=== PATIENT | female | born 1990 | race Asian ===

== ENCOUNTER 2018-02-25 01:22 | Emergency (ER) | payer OTHER ==
--- NOTE | 2018-02-25 01:41 | PDOC ---
History of Present Illness - General Chief Complaint: Allergic Reaction Stated Complaint: ALLERGIC REACTION - History of Present Illness Initial Comments: patient is a 27 year old female, with no significant pmh, who presents to the emergency department complaining of an allergic reaction after eating pasta this evening. Pt states she had a new brand of pasta this evening around 7. Three hours later, pt states she began developing a cough, facial rash, nasal congestion, as well as diffuse macular rash BL on arms and legs. Pt states her face became swollen and she developed increased trouble breathing. Pt took two benadryl with eventual resolution of symptoms. Pt with similar reaction one year ago, however this episode was much worse. No hx of any allergies. Pt with no recent medication changes. The patient denies chest pain, headache or dizziness. Denies fever, chills, nausea, vomiting, diarrhea and constipation. Denies dysuria, frequency, urgency and hematuria. Allergies: None Past surgical history: None Social History: Denies all toxic habits 02/25/18 01:40 Past History - Past Medical History Allergies/Adverse Reactions: Allergies Allergy/AdvReac Type Severity Reaction Status Date / Time No Known Allergies Allergy Verified 02/25/18 01:34 Home Medications: Ambulatory Orders NK [No Known Home Medication] 02/25/18 - Suicide/Smoking/Psychosocial Hx Smoking History: Never smoked Have you smoked in the past 12 months: No Information on smoking cessation initiated: No Hx Alcohol Use: No Drug/Substance Use Hx: No Review of Systems - Review of Systems Comments:: GENERAL/CONSTITUTIONAL: No fever or chills. No weakness. HEAD, EYES, EARS, NOSE AND THROAT: +facial swelling; No change in vision. No ear pain or discharge. No sore throat. CARDIOVASCULAR: No chest pain or shortness of breath RESPIRATORY: +cough, nasal congestion; no wheezing, or hemoptysis. GASTROINTESTINAL: No nausea, vomiting, diarrhea or constipation. GENITOURINARY: No dysuria, frequency, or change in urination. MUSCULOSKELETAL: No joint or muscle swelling or pain. No neck or back pain. SKIN: +Diffuse rash on all extremities NEUROLOGIC: No headache, vertigo, loss of consciousness, or change in strength/ sensation. ENDOCRINE: No increased thirst. No abnormal weight change HEMATOLOGIC/LYMPHATIC: No anemia, easy bleeding, or history of blood clots. ALLERGIC/IMMUNOLOGIC: No hives or skin allergy. 02/25/18 01:41 *Physical Exam - Vital Signs Last Vital Signs Temp Pulse Resp BP Pulse Ox 97.5 F L 75 20 116/65 100 02/25/18 01:35 02/25/18 01:35 02/25/18 01:35 02/25/18 01:35 02/25/18 01:35 - Physical Exam Comments: GENERAL: Young woman, Awake, alert, and fully oriented, in no acute distress HEAD: No signs of trauma, normocephalic, atraumatic EYES: PERRLA, EOMI, sclera anicteric, conjunctiva clear ENT: Mild tonsilar erythema with trace exudate. Auricles normal inspection, hearing grossly normal, nares patent, Moist mucosa NECK: Normal ROM, supple, no lymphadenopathy, JVD, or masses LUNGS: No distress, speaks full sentences, clear to auscultation bilaterally HEART: Regular rate and rhythm, normal S1 and S2, no murmurs, rubs or gallops, peripheral pulses normal and equal bilaterally. ABDOMEN: Soft, nontender, normoactive bowel sounds. No guarding, no rebound. No masses EXTREMITIES : Normal inspection, Normal range of motion, no edema. No clubbing or cyanosis. NEUROLOGICAL: Cranial nerves II through XII grossly intact. Normal speech, normal gait, no focal sensorimotor deficits SKIN: Warm, Dry, normal turgor, no rashes or lesions noted 02/25/18 01:41 ED Treatment Course - LABORATORY CBC & Chemistry Diagram: 02/25/18 01:55 02/25/18 01:55 Medical Decision Making - Medical Decision Making Patient is a 27 year old female, with no significant pmh, who presents to the emergency department complaining of an allergic reaction after eating pasta this evening. Pt with no symptoms or complaints currently. Likely moderate allergic reaction to ingredients in pasta. Consider repeat dose of benadryl, cbc , CMP, referral for frame runner and PCP follow-up. 02/25/18 02:05 Pt with no further symptoms, patent airway, resolving rash. VSS. Pt counseled on outpt f/u with PCP and referral for frame runner. Recommended to claritin/ zyrtec during day, benadryl in evenings. Return to ED if symptoms worsen. Will discharge home. 02/25/18 02:20 *DC/Admit/Observation/Transfer Diagnosis at time of Disposition: Allergic reaction Qualifiers: Encounter type: initial encounter Qualified Code(s): T78.40XA - Allergy, unspecified, initial encounter - Discharge Dispostion Disposition: HOME Condition at time of disposition: Good Decision to Admit order: No - Referrals Referrals: Mariya Garcia MD [Primary Care Provider] - Call tomorrow - Patient Instructions Additional Instructions: During your visit to the [facility] ED, you were evaluated for an allergic reaction. You received standard lab tests, which were relatively unremarkable. You are being discharged home with outpatient follow-up with your primary care provider. We recommend you request a referral for follow-up with an frame runner through your primary care provider. Please take Claritin/zyrtec during the day with dosing regimen as recommended in the instructions. You may take benadryl in the evenings for further symptoms control. If you experience any of the following symptoms, please return to the ED: - Persistent fevers/chills >3 days - Swelling/rash in your face or extremities that does not respond to medication - Worsening shortness of breath, wheezing, diffuse rash or worsening dizziness/ lightheadness - Any new or concerning symptoms - Post Discharge Activity
[2018-02-25 01:50] VITALS: BP 116/65; TEMP 97.5; BMI 22.6
[2018-02-25 02:05] LABS: BASO % 0.5 % (0-2.0); EOS % 1.2 % (0-4.5); HEMATOCRIT 37.8 % (32.4-45.2); HEMOGLOBIN 12.4 GM/dL (10.7-15.3); LYMPH % 45.4 % (8-40); MCH 26.9 pg (25.7-33.7); MCHC 32.9 g/dl (32.0-36.0); MEAN CELL VOLUME 81.8 fl (80-96); MEAN PLT VOLUME 10.6 fl (7.5-11.1); MONO % 10.1 % (3.8-10.2); NEUT % 42.8 % (42.8-82.8); PLATELET COUNT 275 K/MM3 (134-434); RBC 4.62 M/mm3 (3.60-5.2); WHITE BLOOD COUNT 7.2 K/mm3 (4.0-10.0)
--- NOTE | 2018-02-25 02:08 | PDOC ---
Attending Attestation - HPI HPI: 02/25/18 02:15 The patient is a 27 year old female, with no significant past medical history, who presents to the emergency department, s/p allergic reaction. As per patient , she ate a new brand of pasta 7 hours ago prior to the onset of her symptoms. She reports experiencing facial swelling, a macular rash diffusely across all 4 extremities, and a cough with associated SOB. She reports taking Benadryl, with relief. The patient reports a similar episode in the past which she believes was not as severe. She denies recent fevers, chills, headache or dizziness. She denies recent nausea, vomit, diarrhea or constipation. She denies recent dysuria, frequency, urgency or hematuria. She denies recent chest pain. Past surgical history: None reported. Social history: Nonsmoker. Denies EtOH use and recreational drug use. Primary Care Physician: Dr. Garcia <Ricardo Xiao - Last Filed: 02/25/18 02:15> - Resident Resident Name: Jaciel Nash - ED Attending Attestation I have performed the following: I have examined & evaluated the patient, The case was reviewed & discussed with the resident, I agree w/resident's findings & plan, Exceptions are as noted - Physicial Exam PE: 02/25/18 19:21 *Physical Exam General Appearance: Yes: Appropriately Dressed. No: Apparent Distress, Intoxicated HEENT: positive: EOMI, ILA, Normal ENT Inspection, Normal Voice, TMs Normal, Pharynx Normal. negative: Pale Conjunctivae, Photophobia, Scleral Icterus (R), Scleral Icterus (L) Neck: positive: Trachea midline, Normal Thyroid, Supple. negative: Tender, Rigid, Carotid bruit, Stridor, Lymphadenopathy (R), Lymphadenopathy (L), Thyromegaly Respiratory/Chest: positive: Lungs Clear, Normal Breath Sounds. negative: Chest Tender, Respiratory Distress, Accessory Muscle Use, Labored Respiration, RES, Crackles, Rales, Rhonchi, Stridor, Wheezing, Dullness Cardiovascular: positive: Regular Rhythm, Regular Rate, S1, S2. negative: Edema , JVD, Murmur, Bradycardia, Tachycardia Vascular Pulses: Dorsalis-Pedis (R): 2+, Doralis-Pedis (L): 2+ Gastrointestinal/Abdominal: positive: Normal Bowel Sounds, Flat, Soft. negative : Tender, Organomegaly, Pulsatile Mass, Increased Bowel Sounds, Decreased BS, Distended, Guarding, Rebound, Hernia, Hepatomegaly, Spleenomegaly Lymphatic: negative: Adenopathy, Tenderness Musculoskeletal: positive: Normal Inspection. negative: CVA Tenderness, Decreased Range of Motion Extremity: positive: Normal Capillary Refill, Normal Inspection, Normal Range of Motion, Pelvis Stable. negative: Tender, Pedal Edema, Swelling, Erythema Integumentary: positive: Normal Color, Dry, Warm. negative: Cyanotic, Erythema , Jaundice, Rash Neurologic: positive: nurse leader II-XII NML intact, Fully Oriented, Alert, Normal Mood/ Affect, Motor Strength 5/5. negative: EOM Palsy, Facial Droop, Sensory Deficit - Medical Decision Making 02/25/18 19:22 Pt treated and released <Stanislav Montemayor - Last Filed: 02/25/18 19:22> Attestations - Attestations 02/25/18 02:15 Documentation prepared by Ricardo Xiao, acting as biomedical photographer for Stanislav Montemayor DO. <Ricardo Xiao - Last Filed: 02/25/18 02:15>
[2018-02-25 02:25] VITALS: PULSE 70
[2018-02-25 02:28] LABS: ALBUMIN 4.1 g/dl (3.4-5.0); ANION GAP 10 (8-16); BILIRUBIN,TOTAL 0.4 mg/dL (0.2-1.0); CALCIUM 8.6 mg/dL (8.5-10.1); CHLORIDE 108 mmol/L (98-107); CO2 21 mmol/L (21-32); CREATININE 0.8 mg/dL (0.55-1.02); GLUCOSE,RANDOM 97 mg/dL (74-106); POTASSIUM 4.1 mmol/L (3.5-5.1); SGOT/AST 20 U/L (15-37); SGPT/ALT 22 U/L (12-78); SODIUM 139 mmol/L (136-145); TOT PROT 7.7 g/dl (6.4-8.2)
[2018-02-25 02:59] LABS: ALK PHOS 62 U/L (45-117); BLOOD UREA NITROGEN 14 mg/dL (7-18)
== END 2018-02-25 02:25 | disposition home or self-care (01) ==
LOC: JER 01:22
DX: T78.1XXA Other adverse food reactions, not elsewhere classified, initial encounter (principal)
CPT/HCPCS: 36415; 80053; 85025; 99283-25